=== PATIENT | female | born 1960 | race Caucasian/White ===

== ENCOUNTER → 2018-07-17 | Outpatient (CLI) | payer MEDICAID ==
--- NOTE | 2018-07-17 11:56 | Diagnostic Imaging Report ---
PROCEDURE: CT abdomen and pelvis without contrast. TECHNIQUE: Multiple contiguous axial images were obtained through the abdomen and pelvis without the use of intravenous contrast. Auto Exposure Controls were utilized during the CT exam to meet ALARA standards for radiation dose reduction. INDICATION: Lower abdominal pain x2 months. Hematuria, vaginal spotting. CORRELATION STUDY: None. FINDINGS: Visualized lung bases unremarkable. Heart size normal. Small hiatal hernia. The unenhanced liver, gallbladder, spleen, pancreas, adrenal glands unremarkable. Abdominal aorta with minimal wall calcification, nonaneurysmal. Kidneys and collecting system unremarkable. Stomach decompressed. Small bowel without obstruction. Colon relatively collapsed and unremarkable. Urinary bladder relatively decompressed. Patient is post hysterectomy. There is noted a small amount of gas at what appears to be near the level of the vaginal cuff. However, portions of the sigmoid colon blur inseparably with this portion of the vaginal cuff. Osseous structures without acute abnormality. IMPRESSION: 1. There is small amount of gas within the superior aspect of the vagina. It is noted that the portions of the distal colon are in very close proximity to the vaginal cuff. While jayme distortion is not visualized, the possibility of a small fistula would be difficult to exclude. Clinical correlation recommended. 2. Otherwise, unremarkable appearing noncontrast CT imaging of the abdomen and pelvis. Dictated by: Dictated on workstation # [id number]
== END ==
LOC: RAD FS 11:07
PROVIDERS: ATTEND Nurse Practitioner Family
DX: K92.1 Melena (principal); N93.9 Abnormal uterine and vaginal bleeding, unspecified; R31.9 Hematuria, unspecified; Z90.710 Acquired absence of both cervix and uterus
CPT/HCPCS: 74176

== ENCOUNTER → 2018-09-12 | Outpatient (CLI) | payer MEDICAID ==
--- NOTE | 2018-09-12 11:35 | Diagnostic Imaging Report ---
INDICATION: Postmenopausal screening for osteoporosis. COMPARISON: None. FINDINGS: AP Spine L1-L4: [BMD (g/cm2): 0.890] [T-Score: -2.6] [Z-Score: -2.7] [BMD Previous: na] [BMD % Change: na] LT Hip Neck: [BMD (g/cm2): 0.788] [T-Score: -1.8] [Z-Score: -1.4] LT Hip Total: [BMD (g/cm2):0.864] [T-Score:-1.1] [Z-Score: -1.1] [BMD Previous: na] [BMD % Change: na] RT Hip Neck: [BMD (g/cm2):0.797] [T-Score:-1.7] [Z-Score:-1.3] RT Hip Total: [BMD (g/cm2):0.884] [T-score:-1.0] [Z-Score:-1.0] [BMD Previous:na] [BMD % Change:na] *Indicates significant change from prior examination based on 95% confidence level. World Health Organization criteria for BMD interpretation classify patients as Normal (T-score at or above -1.0), Osteopenic (T-score between -1.0 and -2.5) or Osteoporotic (T-score at or below -2.5). LIMITATIONS AND MODIFICATION: None. FRACTURE RISK (FRAX SCORE): The ten year probability of (%): Major Osteoporotic Fracture: [4.0] Hip Fracture: [0.4] IMPRESSION: 1. Osteoporosis. 2. Baseline examination. 3. See below National Osteoporosis Foundation guidelines on when to potentially initiate pharmacologic therapy. Based on the National Osteoporosis Foundation Guidelines, pharmacologic treatment should be initiated in any of the following, unless clinical conditions suggest otherwise: * Any patient with prior fragility fracture of the hip or vertebrae. A spine fracture indicates 5X risk for subsequent spine fracture and 2X risk for subsequent hip fracture. * Osteoporosis (T-score <-2.5). * Postmenopausal women and men age 50 and older with low bone mass/osteopenia (T-score between -1.0 and -2.5) by DXA and 10-year major osteoporotic fracture greater than 20% or a 10-year probability of hip fracture greater than 3%. These fracture risks are supplied above in the FRAX score, if applicable. * Clinician judgement and/or patient preferences may indicate treatment for people with 10-year fracture probabilities above or below these levels. Dictated by: Dictated on workstation # [id number]
== END ==
LOC: EDUNIT# 08-08 09:00 → RAD 10:26
PROVIDERS: ATTEND Nurse Practitioner Family
DX: Z13.820 Encounter for screening for osteoporosis (principal); M81.0 Age-related osteoporosis without current pathological fracture; Z78.0 Asymptomatic menopausal state
CPT/HCPCS: 77080